=== PATIENT | male | born 1960 | race Two or more races ===

== ENCOUNTER 2017-03-19 15:02 | Emergency (ER) | payer OTHER ==
[~2017-03-19] VITALS: Ht 188 cm; Wt 129.6 kg
[2017-03-19 15:06] VITALS: BP 121/84; PULSE 65; RESP 15; O2SAT 100
--- NOTE | 2017-03-19 16:27 | ED.REPORT ---
HPI-General Illness Date of Service Mar 19, 2017 ED Provider: The patient is a 56 year old male who presents to the emergency department complaining of right lower back pain that began 2 days ago. The pain does not radiate anywhere else. His pain is worse with walking. He denies recent injury or trauma. He denies numbness, weakness, bladder or bowel incontinence, fever, chills, vomiting or inability to urinate. He has had similar symptoms intermittently over the last year. The patient does not have a regular doctor. Nursing Notes Stated Complaint: BACK PAIN Chief Complaint: Back Pain or Injury Nursing Notes Reviewed: Yes Allergies: Coded Allergies: No Known Allergies (Unverified , 03/19/17) General Time Seen by MD: 16:27 Chief Complaint Back pain Hx Obtained From: Patient Arrived By: Walk-in Sudden in Onset?: Yes Onset Occurred: 2 days ago Symptom Duration: Since onset Location: : Back Quality: Painful Severity: Current: Moderate Severity: Maximum: Severe Recent Healthcare: No recent doctor visit, No recent hospitalization Similar Sx Previous: Yes Past Medical History Past Medical History Denies Past Surgical History None Family History Noncontributory Smoking History Current Some Day Smoker Social History Alcohol Use: "Social" Drug Use: THC Other Social History: 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 Physical Exam Nursing note and vitals reviewed. Constitutional: Well-developed, well-nourished. Not diaphoretic. Head: Normocephalic and atraumatic. Mouth/Throat: Oropharynx is clear and moist. No oropharyngeal exudate. Eyes: EOM are normal. Pupils are equal, round, and reactive to light. Neck: Supple, no tracheal deviation. Cardiovascular: Normal rate, regular rhythm. Equal and intact distal pulses throughout. Pulmonary/Chest: Effort normal and breath sounds normal. No respiratory distress. Abdominal: Soft. No distension. There is no tenderness, rebound, or guarding. Bowel sounds present. Musculoskeletal: Range of motion grossly intact, moving all extremities. No edema or tenderness appreciated. Back: No midline tenderness. Tenderness to the right lumbar region. Neurological: AOx3. Grossly nonfocal exam. Strength and sensation intact and equal to bilateral upper and lower extremities. Skin: Warm and dry, no rashes or pallor appreciated. Psychiatric: Appropriate mood and affect. Behavior appears normal. Vital Signs Vital Signs Date Time Temp Pulse Resp B/P Pulse Ox O2 Delivery O2 Flow Rate FiO2 03/19/17 17:43 85 20 139/85 96 Room Air 03/19/17 17:11 85 20 139/85 96 Room Air 03/19/17 15:06 37.0 65 15 121/84 100 Room Air Initial VS: Reviewed Re-Eval/Medical Decision Med Decision/Clinical Course 56-year-old male presenting to the ED for evaluation of back pain. No red flag symptoms such as bowel or bladder incontinence, urinary retention, fever, history of IV drug use, etc. that would suggest a compressive syndrome such as cauda equina. Treated with Toradol and Decadron here in the ED. Referral for PCP given. Careful return precautions discussed; patient agreeable to the plan as stated, no further questions. Time of Eval: 17:00 Re-Evaluation/Progress Note: Discussed plan for discharge. All questions were addressed. Counseled Regarding: Diagnosis, Need for follow-up, When/why to return to ED Discharge & Departure Primary Impression: Lumbar strain Encounter type: initial encounter Qualified Code: S39.012A - Strain of muscle, fascia and tendon of lower back, initial encounter Disposition: Home Discharge Condition All VS Reviewed: Yes Condition: Stable Patient Instructions: Low Back Strain (ED) Additional Instructions: Thank you for entrusting us with your care today. Your examination today is reassuring. Use over the counter NSAIDs (ibuprofen or naproxen) as needed for your pain. You can apply heat or ice if it helps. Try to move around frequently when you are at home. Even going on a walk a few times each week will help. It is important that you see a primary care provider regularly. We have given you a referral to the residency clinic. Return to the emergency department for increased pain, numbness, weakness, inability to walk, inability to urination, bladder/bowel incontinence, fever, or any other new or concerning symptoms. Referrals: [facility] Scribe Attestation Portions of this note were transcribed by Mamta Couch. Dr. Ethan Larsen personally performed the history, physical exam and medical decision-making; I reviewed and confirmed the accuracy of the information in the transcribed note. Signed by: Rosalba Thomason, 03/19/2017 at 1730. Serafin Long MD Mar 19, 2017 16:27 Mamta Couch Mar 19, 2017 16:59
[2017-03-19] MEDS ORDERED: Dexamethasone 10 mg/mL Inj IM ONE (16:55)
[2017-03-19 17:11] VITALS: BP 139/85; PULSE 85; RESP 20; O2SAT 96
[2017-03-19 17:43] VITALS: BP 139/85; PULSE 85; RESP 20; O2SAT 96
== END 2017-03-19 17:06 | disposition home or self-care (01) ==
LOC: SED 15:02
DX: S39.012A Strain of muscle, fascia and tendon of lower back, initial encounter (principal); X50.9XXA Other and unspecified overexertion or strenuous movements or postures, initial encounter; Y93.89 Activity, other specified; Y92.89 Other specified places as the place of occurrence of the external cause; Y99.8 Other external cause status; F17.200 Nicotine dependence, unspecified, uncomplicated
CPT/HCPCS: 96372; 99284; J1100; J1885

== ENCOUNTER 2017-03-23 15:24 | Emergency (ER) | payer OTHER ==
[~2017-03-23] VITALS: Ht 189.2 cm; Wt 129.6 kg
[2017-03-23 15:27] VITALS: BP 116/80; PULSE 81; RESP 18; O2SAT 96
[2017-03-23] MEDS ORDERED: predniSONE 20 mg Tablet PO ONE (17:55)
--- NOTE | 2017-03-23 17:57 | ED.REPORT ---
HPI-Back Pain 40 and Over Date of Service Mar 23, 2017 ED Provider: Sandeep Martino PA-C Cheko is an otherwise healthy 56-year-old male presenting with chief complaint of right-sided low back pain. Reports a history of back pain, worsened over the last week. Seen in this department several days ago treated with NSAIDs, Decadron. 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 Denies fever, DM, HIV, organ transplant, immunosuppression, recent surgery, recent infection, history of back surgery, surgical implants and IV drug use. Denies bowel/bladder dysfunction and saddle anesthesia. Denies hematuria, dysuria. 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 Head: Atraumatic, normocephalic. Eyes: No scleral icterus or injection. No discharge. Vision grossly intact. ENT: Voice clear, hearing grossly intact. Respiratory: No respiratory distress, no increased work of breathing. Speaks in complete sentences. Skin: Warm and dry. Back: Normal to inspection, negative midline spinous process tenderness, negative SI tenderness, negative CVA tenderness. Neurological: Antalgic gait favoring the right side, toe walk, heel walk, Romberg. Hip flexion, knee extension strength 5/5 B/L. Patellar and Achilles reflexes present and equal B/L. Sensation to sharp touch intact at medial leg, dorsal foot and lateral foot B/L. negative seated straight leg raise, negative seated cross straight leg raise. Psychological: alert and oriented. Speech appropriate, linear and logical. Behavior appropriate. Initial Vital Signs Vital Signs (First) Date Time Temp Pulse Resp B/P Pulse Ox O2 Delivery O2 Flow Rate FiO2 03/23/17 15:27 36.6 81 18 116/80 96 Room Air Normal Re-Eval/Medical Decision Med Decision/Clinical Course 56-year-old male with a history of back pain presenting with right-sided low back pain over the last week. Seen in this department several days ago, symptoms continue. Denies red like history for epidural abscess, hematoma, cauda equina syndrome, cancer. His examination reveals a well-appearing male, normal neurological examination nontender back including CVA. Vital signs are normal, afebrile. Back pain is without red flag symptoms for acute disc herniation, cauda equina, infection, hematoma, trauma, pyelonephritis, nephrolithiasis, AAA, cancer. I believe this is musculoskeletal back pain. Stable and safe to be discharged. Treated successfully in the department with ketorolac, prednisone, acetaminophen. Event prescription for prednisone, advised approximately acetaminophen. Patient has primary care follow-up on . Provide emergent return precautions. Patient verbalizes understanding of and consent to the plan. Discharge & Departure Impression: Primary Impression: Low back pain Chronicity: chronic Back pain laterality: left Sciatica presence: without sciatica Qualified Code: M54.5 - Low back pain Disposition: Home Discharge Condition All VS Reviewed: Yes Condition: Stable Additional Instructions: Evaluation in the emergency department for lower back pain consists of interview and physical examination, both of which are reassuring at this is unlikely to be an emergent neurological condition such as epidural abscess or cauda equina syndrome. History does not suggest that this is likely to be a spinal fracture. Your neurological examination is normal, indicating there is no damage to the nerves in your back. I see no indication to perform imaging tests at this time. Treatment is largely symptomatic. Rest is important, especially for the next couple of days, but avoid total bed rest. Reasonable activity as tolerated is the best. Apply ice to the affected area 4 times a day for 20 minutes over the next 24 hours. After that you will probably find warm compresses most helpful. The pain is best treated with 800 mg of ibuprofen (Advil, Motrin) every 6 hours , or 1000 mg of acetaminophen (Tylenol) every 6 hours. These drugs can be taken at the same time for more severe pain. You were given a dose of prednisone here in the emergency department, a steroid to reduce swelling. I will write a prescription for 3 more doses to be taken over the next 3 days, starting tomorrow. Most of all be patient: 70-90% of people with injuries presenting like yours will resolve within 7 weeks, even without treatment. Follow-up with your primary care provider in the next week or two to be sure your recovery is progressing as expected. Return the emergency department for new or worsening symptoms such as loss of bowel/bladder control, numbness between your legs, new weakness/numbness or high fever. Referrals: Yeyo Peralta DO (PCP) EDSupervising Provider for APC: Quinton Hatch MD copies to: Yeyo Peralta Seth PA-C Mar 23, 2017 17:57
[2017-03-23] MEDS ORDERED: PRE20 PO (17:58)
[2017-03-23 18:08] VITALS: BP 128/59; PULSE 59; RESP 20; O2SAT 98
== END 2017-03-23 18:31 | disposition home or self-care (01) ==
LOC: SED 15:24
DX: M54.5 Low back pain (principal); F17.200 Nicotine dependence, unspecified, uncomplicated
CPT/HCPCS: 96372; 99283; J1885